=== PATIENT | male | born 1955 | race Caucasian/White ===

== ENCOUNTER 2019-04-11 08:15 | Observation (INO) | payer BC ==
[~2019-04-11] VITALS: Ht 180.3 cm; Wt 90.0 kg
[2019-04-11] MEDS ORDERED: SODIUM CHLORIDE 0.9% 1,000 ML IV SCH (08:58)
[2019-04-11 09:00] VITALS: BP 114/64
[2019-04-11] MEDS ORDERED: FLUT1DIS3 INH (09:25)
[2019-04-11] MEDS ORDERED: ALBU18HF INH (09:27)
[2019-04-11] MEDS ORDERED: TAMS-11 PO (09:28)
[2019-04-11] MEDS ORDERED: IRBE150T25 PO (09:29)
[2019-04-11] MEDS ORDERED: BUPR150T73 PO (09:30)
[2019-04-11] MEDS ORDERED: PLEASE ENTER HEIGHT AND WEIGHT MC SCH (09:30)
[2019-04-11] MEDS ORDERED: ASPI-496 PO (09:31)
[2019-04-11] MEDS ORDERED: MIDAZOLAM 1 MG/ML, 5ML ONE (10:25)
[2019-04-11] MEDS ORDERED: ADENOSINE 6 MG/2 ML ONE (10:26)
[2019-04-11] MEDS ORDERED: FENTANYL PF 250 MCG/5ML ONE (10:26)
[2019-04-11] MEDS ORDERED: LIDOCAINE 1%, 20ML ONE ×2 (10:26→12:32)
[2019-04-11] MEDS ORDERED: ISOPROTERENOL 0.2MG/ML, 5ML ONE (10:26)
[2019-04-11] MEDS ORDERED: HEPARIN 1,000 UNITS/ML, 10ML ONE (12:31)
[2019-04-11] MEDS ORDERED: PROTAMINE SULFATE 10 MG/ML, 5ML ONE (13:23)
[2019-04-11 16:02] VITALS: BP 144/82
[2019-04-11] MEDS ORDERED: OXYcodone/APAP 5/325MG TABLET PO PRN (17:30)
[2019-04-11] MEDS ORDERED: ONDANSETRON 2MG/ML, 2ML IVPush PRN (17:30)
[2019-04-11 20:18] VITALS: BP 150/75
[2019-04-11] MEDS: BUPROPION SR 150 MG TABLET PO SCH (21:00)
[2019-04-11] MEDS: (Fluticasone/Salmeterol** (Advair 250-50 Diskus**) 1 PUFF) INH SCH (21:00)
[2019-04-12 00:15] VITALS: BP 110/58
[2019-04-12 07:14] VITALS: BP 127/70
[2019-04-12] MEDS: (Fluticasone/Salmeterol** (Advair 250-50 Diskus**) 1 PUFF) INH SCH (08:04)
[2019-04-12] MEDS: BUPROPION SR 150 MG TABLET PO SCH (08:04)
[2019-04-12] MEDS ORDERED: ASPIRIN 81 MG TABLET EC PO SCH (09:00)
[2019-04-12] MEDS ORDERED: TAMSULOSIN 0.4 MG CAP.ER.24H PO SCH (09:00)
[2019-04-12] MEDS ORDERED: IRBESARTAN 150 MG TABLET PO SCH (09:00)
[2019-04-12] MEDS ORDERED: FLECAINIDE 100MG TABLET PO SCH (09:30)
[2019-04-12] MEDS ORDERED: FLEC100T PO (12:33)
== END 2019-04-12 14:19 | disposition home or self-care (01) ==
LOC: CACL 08:15 → ORIP 13:37 → 5SO 15:38 → DCLOUNGE 04-12 13:22
PROVIDERS: ADMIT Internal Medicine Cardiovascular Disease; ATTEND Internal Medicine Cardiovascular Disease
DX: I47.2 Ventricular tachycardia (principal); I45.2 Bifascicular block; F41.9 Anxiety disorder, unspecified; N40.1 Benign prostatic hyperplasia with lower urinary tract symptoms; I10 Essential (primary) hypertension; Z79.899 Other long term (current) drug therapy
CPT/HCPCS: 36415; 80051; 83735; 93306; 93654; 99156; 99157; C1730; C1732; C1760; C1894; G0378; J0153; J1644; J2250; J2720; J3010; J3490; Q9967

== ENCOUNTER → 2019-08-16 | Outpatient (CLI) | payer BC ==
[~2019-08-16] MED LIST: ALBU18HF INH; ASPI-496 PO; BUPR150T73 PO; FLEC100T PO; FLUT1DIS3 INH; IRBE150T9 PO; REGADENOSON 0.4 MG/5 ML SYRINGE ONE; TAMS-11 PO
== END | disposition home or self-care (01) ==
LOC: CFH 12:21
PROVIDERS: ATTEND Nurse Practitioner Family
DX: I21.9 Acute myocardial infarction, unspecified (principal); R29.898 Other symptoms and signs involving the musculoskeletal system; I10 Essential (primary) hypertension
CPT/HCPCS: 78452; 93017; A9502; J2785

== ENCOUNTER 2019-09-29 08:10 | Day surgery (SDC) | payer BC ==
[~2019-09-29] VITALS: Ht 177.8 cm; Wt 90.9 kg
[~2019-09-29 08:10] MED LIST changes: -REGADENOSON 0.4 MG/5 ML SYRINGE ONE
[2019-09-29] MEDS ORDERED: SODIUM CHLORIDE 0.9% 1,000 ML IV SCH ×2 (08:28→10:14)
[2019-09-29] MEDS ORDERED: ASPIRIN 325 MG TABLET EC PO ONE (08:30)
[2019-09-29 08:31] VITALS: BP 130/70
[2019-09-29] MEDS ORDERED: MEXI150C PO (08:44)
[2019-09-29] MEDS ORDERED: ASPIRIN 325 MG TABLET EC ONE (08:49)
[2019-09-29 08:58] LABS: BASOPHILS # (AUTO) 0.05 x10^3/uL (0-0.1); BASOPHILS % (AUTO) 1 % (0-1); EOSINOPHILS # (AUTO) 0.44 x10^3/uL (0-0.4); EOSINOPHILS % (AUTO) 6 % (1-7); LYMPHOCYTES # (AUTO) 2.56 x10^3/uL (1-3.4); LYMPHOCYTES % (AUTO) 36 % (22-44); MD NO; MEAN CORPUSCULAR HGB CONC 33.5 g/dL (33.2-36.2); MEAN CORPUSCULAR VOLUME 95.7 fL (81-97); MEAN PLATELET VOLUME 8.1 fL (7.4-10.4); MONOCYTES # (AUTO) 0.53 x10^3/uL (0.2-0.8); MONOCYTES % (AUTO) 8 % (2-9); NEUTROPHILS # (AUTO) 3.51 x10^3/uL (1.8-6.8); NEUTROPHILS % (AUTO) 50 % (42-75); PLATELET COUNT 304 x10^3/uL (130-400); RED BLOOD COUNT 4.37 x10^6/uL (4.38-5.82); RED CELL DISTRIBUTION WIDTH 14.1 % (9.4-14.8)
[2019-09-29] MEDS ORDERED: PLEASE ENTER HEIGHT AND WEIGHT MC SCH (09:00)
[2019-09-29 09:05] LABS: ANION GAP 9 mmol/L (5-15); CALCIUM 8.5 mg/dL (8.5-10.1); CHLORIDE 111 mmol/L (98-107); CREATININE 1.03 mg/dL (0.7-1.3)
[2019-09-29] MEDS ORDERED: HEPARIN 1,000 UNITS/ML, 10ML ONE (09:26)
[2019-09-29] MEDS ORDERED: MIDAZOLAM 1 MG/ML, 2ML ONE ×2 (09:26→09:51)
[2019-09-29] MEDS ORDERED: VERAPAMIL 2.5 MG/ML, 2ML ONE (09:26)
[2019-09-29] MEDS ORDERED: LIDOCAINE-MPF 1%, 5ML ONE (09:26)
[2019-09-29] MEDS ORDERED: FENTANYL PF 100 MCG/2ML ONE (09:26)
== END 2019-09-29 11:46 | disposition home or self-care (01) ==
LOC: CACL 08:10
PROVIDERS: ATTEND Internal Medicine Cardiovascular Disease
DX: R07.9 Chest pain, unspecified (principal); I25.110 Atherosclerotic heart disease of native coronary artery with unstable angina pectoris; I25.83 Coronary atherosclerosis due to lipid rich plaque; I42.9 Cardiomyopathy, unspecified; I49.3 Ventricular premature depolarization; I10 Essential (primary) hypertension; J45.909 Unspecified asthma, uncomplicated; Z79.899 Other long term (current) drug therapy
CPT/HCPCS: 36415; 80048; 85025; 93458; 99156; C1769; C1894; J1644; J2250; J3010; Q9967